=== PATIENT | female | born 1995 | race Caucasian/White ===

== ENCOUNTER 2017-01-13 01:09 | Emergency (ER) | payer MEDICAID ==
[~2017-01-13] VITALS: Ht 162.6 cm; Wt 59.1 kg
[~2017-01-13 01:09] MED LIST: ANTIVERT 25MG25 MG PO; FLINTSTONES W/I1 CTB PO; FLINTSTONES1 CTB PO; IBU600 MG PO; MACROBID 1100 MG/CAP PO; METHERGINE0.2 MG/TAB PO; MOTRIN 600600 MG/TAB PO; MOTRIN800 MG PO; NO HOME MEDICATIONS; NORCO 325 MG-7.1 TAB PO; OMNICEF 300MG300 MG PO; PERCOCET 325 MG1 TA2 PO; PHENERGAN 25 TA25 MG PO; PHENERGAN25 MG RC; PRENATAL 191 TAB PO; PROAIR HFA0.09 MG/AC IH; PROVENTIL0.09 MG/A1 IH; ZITHROMAX 250M250 MG PO
[2017-01-13 01:25] VITALS: TEMP 98.5
[2017-01-13 02:29] LABS: BASO % 0.4 % (0.0-2.0); EOS # 0.1 (0.0-0.7); EOS % 1.3 % (0-4.0); GRAN # 2.4 (1.4-6.5); GRAN % 43.1 % (42.2-75.2); HEMATOCRIT 38.9 % (37.0-47.0); HEMOGLOBIN 13.2 g/dl (12.5-16.0); LYMPH # 2.8 (1.2-3.4); LYMPH % 49.5 % (20.0-51.0); MEAN CELL VOLUME 89 fl (80.0-100.0); MEAN CORPUSCULAR HEMOGLOBIN 30 pg (27.0-31.0); MEAN CORPUSCULAR HGB CONC 34 g/dl (33.0-37.0); MEAN PLATELET VOLUME 9.7 fl (7.4-10.4); MONO # 0.3 (0.1-0.6); PLATELET COUNT 178 K/mm3 (130-400); RED BLOOD COUNT 4.37 M/mm3 (4.10-5.30); REDCELL DISTRIBUTION WIDTH-CV 11.6 % (11.5-14.5); WHITE BLOOD COUNT 5.6 K/mm3 (4.8-10.8)
[2017-01-13 02:40] LABS: ANION GAP 12 mmol/L (7-16); BLOOD UREA NITROGEN 9 mg/dL (7-17); CALCIUM 9.2 mg/dL (8.4-10.2); CARBON DIOXIDE 23 mmol/L (22-30); CHLORIDE 108 mmol/L (98-107); GLUCOSE 85 mg/dL (74-106); POTASSIUM 3.3 mmol/L (3.4-5.0); SODIUM 142 mmol/L (137-145)
[2017-01-13 02:52] LABS: TROPONIN-I < 0.012 ng/mL (0.000-0.034)
[2017-01-13 03:24] VITALS: BP 108/76; PULSE 90
== END 2017-01-13 03:24 | disposition home or self-care (01) ==
LOC: COL.ER 01:09
PROVIDERS: Physician Assistant
DX: F41.9 Anxiety disorder, unspecified (principal); R07.9 Chest pain, unspecified; J45.909 Unspecified asthma, uncomplicated; Z90.49 Acquired absence of other specified parts of digestive tract; Z87.891 Personal history of nicotine dependence; Z32.02 Encounter for pregnancy test, result negative

== ENCOUNTER 2017-05-28 20:23 | Emergency (ER) | payer SELFPAY ==
[~2017-05-28] VITALS: Ht 162.6 cm; Wt 54.5 kg
[2017-05-28 20:32] VITALS: TEMP 99.5
[2017-05-28 21:23] LABS: BASO % 0.2 % (0.0-2.0); GRAN # 3.4 (1.4-6.5); GRAN % 69.8 % (42.2-75.2); HEMATOCRIT 37.4 % (37.0-47.0); LYMPH # 1.1 (1.2-3.4); LYMPH % 22.7 % (20.0-51.0); MEAN CELL VOLUME 88 fl (80.0-100.0); MEAN CORPUSCULAR HEMOGLOBIN 31 pg (27.0-31.0); MEAN CORPUSCULAR HGB CONC 35 g/dl (33.0-37.0); MEAN PLATELET VOLUME 9.6 fl (7.4-10.4); MONO # 0.3 (0.1-0.6); MONO % 7.1 % (1.7-9.3); PLATELET COUNT 158 K/mm3 (130-400); RED BLOOD COUNT 4.23 M/mm3 (4.10-5.30); REDCELL DISTRIBUTION WIDTH-CV 11.9 % (11.5-14.5)
[2017-05-28 21:34] LABS: ACETAMINOPHEN < 10 ug/mL (10-30); ALANINE AMINOTRANSFERASE 35 U/L (9-52); ALBUMIN 4.2 gm/dL (3.5-5.0); ALCOHOL(ethanol),MEDICAL 24 mg/dL; ALKALINE PHOSPHATASE 109 U/L (50-136); ANION GAP 12 mmol/L (7-16); AST,SGOT 20 U/L (15-37); BILIRUBIN,TOTAL 0.7 mg/dL (0.0-1.0); BLOOD UREA NITROGEN 9 mg/dL (7-17); CALCIUM 9.1 mg/dL (8.4-10.2); CARBON DIOXIDE 21 mmol/L (22-30); CHLORIDE 108 mmol/L (98-107); CREATININE, serum 0.64 mg/dL (0.52-1.25); GLUCOSE 89 mg/dL (74-106); POTASSIUM 3.2 mmol/L (3.4-5.0); SALICYLATE < 1.0 mg/dL; SODIUM 141 mmol/L (137-145); TOTAL PROTEIN 7.2 gm/dL (6.4-8.2)
[2017-05-28 21:41] LABS: TRICYCLIC ANTIDEPRESS URINE NEGATIVE
[2017-05-29 09:19] VITALS: BP 103/62; PULSE 91
== END 2017-05-29 10:13 | disposition home or self-care (01) ==
LOC: COL.ER 20:23
PROVIDERS: Emergency Medicine
DX: T48.1X2A Poisoning by skeletal muscle relaxants [neuromuscular blocking agents], intentional self-harm, initial encounter (principal); F32.9 Major depressive disorder, single episode, unspecified; F41.9 Anxiety disorder, unspecified; F43.10 Post-traumatic stress disorder, unspecified; J45.909 Unspecified asthma, uncomplicated; Z98.890 Other specified postprocedural states
CPT/HCPCS: J7030

== ENCOUNTER 2018-04-30 04:44 | Outpatient (CLI) | payer MEDICAID ==
[~2018-04-30] VITALS: Ht 162.6 cm; Wt 63.6 kg
[2018-04-30 05:13] VITALS: BP 104/57; PULSE 100; TEMP 97.4
[2018-04-30 05:47] VITALS: BP 104/57; PULSE 100; TEMP 97.4
[2018-04-30 06:02] LABS: EOS % 0.1 % (0-4.0); GRAN # 7.3 (1.4-6.5); GRAN % 88.7 % (42.2-75.2); HEMATOCRIT 37.4 % (37.0-47.0); LYMPH # 0.5 (1.2-3.4); LYMPH % 6.3 % (20.0-51.0); MEAN CELL VOLUME 89 fl (80.0-100.0); MEAN CORPUSCULAR HEMOGLOBIN 31 pg (27.0-31.0); MEAN CORPUSCULAR HGB CONC 35 g/dl (33.0-37.0); MEAN PLATELET VOLUME 9.5 fl (7.4-10.4); MONO # 0.4 (0.1-0.6); MONO % 4.3 % (1.7-9.3); PLATELET COUNT 165 K/mm3 (130-400); RED BLOOD COUNT 4.21 M/mm3 (4.10-5.30); REDCELL DISTRIBUTION WIDTH-CV 12.3 % (11.5-14.5)
[2018-04-30 06:10] LABS: ALBUMIN 3.5 gm/dL (3.5-5.0); BILIRUBIN,TOTAL 0.9 mg/dL (0.0-1.0); CALCIUM 8.8 mg/dL (8.4-10.2); CREATININE, serum 0.52 mg/dL (0.52-1.25); POTASSIUM 3.6 mmol/L (3.4-5.0); TOTAL PROTEIN 6.8 gm/dL (6.4-8.2)
[2018-04-30 06:30] VITALS: TEMP 98.9
[2018-04-30 07:01] LABS: COLLECTION METHOD CLEAN CATCH
[2018-04-30 07:28] VITALS: BP 115/67; PULSE 88; TEMP 97.7
[2018-04-30 07:29] LABS: MUCOUS Present /lpf; PH 5 (5-8); SQUAMOUS EPITHELIAL 0-2 /hpf; URINE APPEARANCE Hazy; URINE BACTERIA Rare /hpf; URINE BILIRUBIN Negative (NEGATIVE); URINE BLOOD Negative (NEGATIVE); URINE COLOR Amber; URINE GLUCOSE Negative (NEGATIVE); URINE KETONE 2+ (NEGATIVE); URINE LEUKOCYTE ESTERASE 1+ (NEGATIVE); URINE NITRATE Negative (NEGATIVE); URINE PROTEIN(semi-quant) 2+ (NEGATIVE); URINE RBC None Seen /hpf; URINE WBC 0-2 /hpf
== END 2018-04-30 08:25 | disposition home or self-care (01) ==
LOC: LDRO 04:44
PROVIDERS: Obstetrics & Gynecology
DX: O26.893 Other specified pregnancy related conditions, third trimester (principal); R11.2 Nausea with vomiting, unspecified; R10.30 Lower abdominal pain, unspecified; Z3A.31 31 weeks gestation of pregnancy
CPT/HCPCS: J7120

== ENCOUNTER 2018-06-23 04:58 | Inpatient (IN) | payer MEDICAID ==
[~2018-06-23] VITALS: Ht 162.6 cm; Wt 69.1 kg
[2018-06-23] VITALS (15 sets, daily range): BP systolic 104–125; BP diastolic 45–77; PULSE 66–94; TEMP 97.6–98.3
[2018-06-23 05:58] LABS: BASO % 0.1 % (0.0-2.0); EOS % 0.4 % (0-4.0); GRAN # 6.4 (1.4-6.5); GRAN % 68.1 % (42.2-75.2); HEMATOCRIT 37.3 % (37.0-47.0); HEMOGLOBIN 12.7 g/dl (12.5-16.0); LYMPH # 2.4 (1.2-3.4); LYMPH % 24.8 % (20.0-51.0); MEAN CELL VOLUME 87 fl (80.0-100.0); MEAN CORPUSCULAR HEMOGLOBIN 30 pg (27.0-31.0); MEAN CORPUSCULAR HGB CONC 34 g/dl (33.0-37.0); MEAN PLATELET VOLUME 10.1 fl (7.4-10.4); MONO # 0.6 (0.1-0.6); MONO % 6.1 % (1.7-9.3); PLATELET COUNT 216 K/mm3 (130-400); RED BLOOD COUNT 4.29 M/mm3 (4.10-5.30); REDCELL DISTRIBUTION WIDTH-CV 12.6 % (11.5-14.5)
--- NOTE | 2018-06-23 06:45 | NUR ---
0645-Recieved report from GAYLE Arredondo who admitted patient for Repeat C/S. Reviewed Reactive strip and VSS. Consents previouslly signed by Maria Elena ARAUJO and patient. Updated on plan of care. IVF to R hand infusing. Site prepped. Patient previously trimmed mons pubis. Assessment complete. Awaiting Anesthesia provider to walk back to OR.
--- NOTE | 2018-06-23 08:25 | NUR ---
0825-Patient to PACU via bed. Drowsy but easily alert and oriented x 4. Patient denies pain. VSS, see recovery flow record. IV to right wrist with IVF infusing. Abdoimnal binder in place. Fundal massage firm. Lower abdominal dressing C/D/I, lochia WNL. Unable to feel sensation in LE, Easily moves all UE. Updated on plan of care and safety. Recieved report from ELLEN Weeks.
--- NOTE | 2018-06-23 08:55 | NUR ---
0855-All PACU vital signs WNL. VS not documented, system did not save information.
--- NOTE | 2018-06-23 08:55 | NUR ---
0855-Patient to room from Pacu VIA bed. A&O x4. Updated on plan of care and safety. VSS, see flow record. Carroll remains to DD, clear yellow urine. IVF to right wrist. SCDs BLE. Infant to left breast at this time. Will continue to monitor.
--- NOTE | 2018-06-23 18:30 | NUR ---
Eating meal, visiting with a friend. Pt states she is concerned that is sleepy and will not latch. RN explained this can be normal for infants age. Pt states her breasts "hurt" and she wants to pump and requested a breast pump. Pt states she plans to pump and feed infant. RN set pt up with pump and supplies as requested. Explained that if she is not planning on putting to breast she will will need to supplement with formula until she is able to pump enough breast milk for infants needs. Pt voiced understanding. RN reassured she will help pt and with needs throughout the night. Pt denies pain at this time. No futher needs.
--- NOTE | 2018-06-23 18:35 | NUR ---
REPORT RECEIVED FROM OFF GOING RN MEET Serna. CARE TAKEN OVER BY THIS RN.
[2018-06-24] MEDS ORDERED: IBU600 MG PO (08:28)
[2018-06-24] MEDS ORDERED: PERCOCET 325 MG1 TA2 PO (08:28)
[2018-06-24 08:30] VITALS: BP 108/74; PULSE 80; TEMP 98
--- NOTE | 2018-06-24 11:29 | NUR ---
Initial visit; Mom thanked for offering congratulations for the of her daughter. thanked Mom for choosing [facility].
[2018-06-24 17:00] VITALS: BP 122/64; PULSE 85; TEMP 97.6
[2018-06-24 20:00] VITALS: BP 109/72; PULSE 87; TEMP 98.5
[2018-06-25 07:45] VITALS: BP 116/55; PULSE 78; TEMP 98
--- NOTE | 2018-06-25 07:45 | NUR ---
Rests in bed, alert. Denies any needs at this time.
[2018-06-25] MEDS ORDERED: BREASTPUMP MC (08:53)
--- NOTE | 2018-06-25 11:30 | NUR ---
Discharge instructions given. Verbalizes understanding.
== END 2018-06-25 11:30 | disposition home or self-care (01) | DRG 788 ==
LOC: OB 04:58
PROVIDERS: ADMIT Obstetrics & Gynecology
PROC: 10D00Z1 Extraction of Products of Conception, Low, Open Approach (ICD-10-PCS; principal; 2018-06-23)
DX: O34.211 Maternal care for low transverse scar from previous cesarean delivery (principal); Z3A.39 39 weeks gestation of pregnancy; Z37.0 Single live birth; O99.334 Smoking (tobacco) complicating childbirth; O99.344 Other mental disorders complicating childbirth; F41.8 Other specified anxiety disorders; J45.909 Unspecified asthma, uncomplicated
CPT/HCPCS: J0690; J1885; J2250; J2370; J2405; J2590; J3010; J7120

== ENCOUNTER 2019-04-04 16:17 | Outpatient (CLI) | payer MEDICAID ==
[~2019-04-04] VITALS: Ht 162.6 cm; Wt 68.0 kg
[~2019-04-04 16:17] MED LIST changes: +BREASTPUMP MC
[2019-04-04 16:20] VITALS: BP 120/83; PULSE 101; TEMP 98.8
--- NOTE | 2019-04-04 16:20 | NUR ---
1620-G5L3 patient of Dr. Huynh to unit via wheelchair sobbing reporting abdoinal pain off and on since yesterday and upon awaking it became constant in front abdomen at umbilicus and down to pelvis directly in middle. Patient reports no vaginal bleeding or leaking of fluid. SVE /H. VSS, see flow record. 1650-Dr. Galeas updated. Orders to obtain CBC,CMP, UA,UDS, Lipase,Amylase, Give 500ml LR bolus and then infuse at 200ml/hr. Give 10mg pepcid, 4mg zofran. 1718-IV to left wrist, blood collected and sent to lab. Medications given, see emar. 1734-MD calls unit for update, reviewed patients strip and reported patient stating pain "not much improved."
[2019-04-04 17:00] VITALS: BP 120/83; PULSE 101; TEMP 98.8
--- NOTE | 2019-04-04 17:18 | NUR ---
1718-IV TO LEFT FOREARM BLOOD COLLECTED PER ORDERS AND SENT TO LAB. IVF BOLUS PER ORDERS. PEPCID AND ZOFRAN GIVEN PER ORDERS. UPDATED ON PLAN OF CARE. PATIENT SIGNIFICANT OTHER ASLEEP AT BEDSIDE. PATIENT FRIEND IN ROOM DISCUSSING PATIENTS CHILD AT HOME WITH "STOMACH ACHE LAST NIGHT" 1734-MD CALLS UNIT UPDATED ON PATIENT 1822-MD UPDATED ON PATIENTS LAB RESULTS 1825-SVE BY THIS RN /H, PATIENT UPDATED ON PLAN FOR DISCHARGE. DENIES QUESTIONS.
[2019-04-04 17:20] LABS: COLLECTION METHOD CLEAN CATCH
[2019-04-04 17:30] VITALS: BP 113/58; PULSE 88
[2019-04-04 17:30] LABS: HEMOGLOBIN 12.6 g/dl (12.5-16.0); MEAN CELL VOLUME 90 fl (80.0-100.0); MEAN CORPUSCULAR HEMOGLOBIN 31 pg (27.0-31.0); MEAN CORPUSCULAR HGB CONC 34 g/dl (33.0-37.0); MEAN PLATELET VOLUME 9.8 fl (7.4-10.4); PLATELET COUNT 165 K/mm3 (130-400); RED BLOOD COUNT 4.09 M/mm3 (4.10-5.30); REDCELL DISTRIBUTION WIDTH-CV 12.6 % (11.5-14.5)
[2019-04-04 17:31] LABS: MUCOUS Present /lpf; PH 6 (5-8); SQUAMOUS EPITHELIAL 0-2 /hpf; URINE APPEARANCE Clear; URINE BACTERIA None Seen /hpf; URINE BILIRUBIN Negative (NEGATIVE); URINE BLOOD Negative (NEGATIVE); URINE COLOR Yellow; URINE GLUCOSE Negative (NEGATIVE); URINE KETONE 1+ (NEGATIVE); URINE LEUKOCYTE ESTERASE Negative (NEGATIVE); URINE NITRATE Negative (NEGATIVE); URINE PROTEIN(semi-quant) Negative (NEGATIVE); URINE RBC 0-2 /hpf; URINE UROBILINOGEN >=4.0 mg/dL (NEGATIVE); URINE WBC 0-2 /hpf
[2019-04-04 17:37] LABS: HEMATOCRIT 36.8 % (37.0-47.0)
[2019-04-04 17:50] LABS: ALBUMIN 3.7 gm/dL (3.5-5.0); BILIRUBIN,TOTAL 0.7 mg/dL (0.0-1.0); CALCIUM 8.6 mg/dL (8.4-10.2); CREATININE, serum 0.45 (0.52-1.25); POTASSIUM 3.7 mmol/L (3.4-5.0); TOTAL PROTEIN 7.1 gm/dL (6.4-8.2)
[2019-04-04 17:58] LABS: TRICYCLIC ANTIDEPRESS URINE NEGATIVE
[2019-04-04 18:00] VITALS: BP 104/58; PULSE 85
--- NOTE | 2019-04-04 18:50 | NUR ---
DISCHARGE INSTRUCTIONS REVIEWED BY GAYLE CUMMINGS 1855-PATIENT AMBULATORY OFF UNIT WITH SIGNIFICANT OTHER.
== END 2019-04-04 18:55 | disposition home or self-care (01) ==
LOC: LDRO 16:17 → LDR 16:18 → LDRO 18:55
PROVIDERS: Obstetrics & Gynecology
DX: O62.9 Abnormality of forces of labor, unspecified (principal); Z3A.33 33 weeks gestation of pregnancy
CPT/HCPCS: OP; J2405; J7120

== ENCOUNTER 2019-05-11 02:29 | Inpatient (IN) | payer MEDICAID ==
[~2019-05-11] VITALS: Ht 160 cm; Wt 68.6 kg
[2019-05-11] VITALS (27 sets, daily range): BP systolic 93–119; BP diastolic 45–81; PULSE 69–100; TEMP 97.8–98.4
--- NOTE | 2019-05-11 02:30 | NUR ---
Pt to [facility] via [facility]. Report received from EMS. Pt able to move from strecher to bed independelty, pt crying at this time. Clean gown on. EFM and TOCO explained and applied. Pt states she has been having contractions for the last 2 weeks but also since falling. Pt states she was walking in [place] and tripped and fell on her abdomen. Pt was unable to catch herself during the fall. Pt reports sharp pain in her pelvis that radiates to her vagina and her back. Pt states pain is intermittent like contractions. Pt denies any other symptoms at this time. Denies LOF or vaginal bleeding. Pt states she has not felt fetus move since the fall. SVE 2-350/-2. 0301: called and updated on pts status. See physican notification. Pt updated on plan of care. Denies any questions. 0322: Tylenol #3 given per orders. Call light within reach. Family at bedside. Encouraged pt to get some rest.
--- NOTE | 2019-05-11 07:49 | NUR ---
Patient to bathroom to void. This RN at bedside and obtains UA. 0800: IV started in left hand, blood obtained and to lab, LR infusing. 0915: Patient prepped for surgery, superpubic area shaved, and cleansed with prep solution. Preop medications given.
[2019-05-11 08:14] LABS: BASO % 0.2 % (0.0-2.0); EOS # 0.1 (0.0-0.7); EOS % 0.7 % (0-4.0); GRAN % 62.8 % (42.2-75.2); HEMOGLOBIN 11.7 g/dl (12.5-16.0); LYMPH # 2.3 (1.2-3.4); LYMPH % 28.4 % (20.0-51.0); MEAN CELL VOLUME 90 fl (80.0-100.0); MEAN CORPUSCULAR HEMOGLOBIN 30 pg (27.0-31.0); MEAN CORPUSCULAR HGB CONC 33 g/dl (33.0-37.0); MEAN PLATELET VOLUME 9.8 fl (7.4-10.4); MONO # 0.6 (0.1-0.6); MONO % 7.2 % (1.7-9.3); PLATELET COUNT 171 K/mm3 (130-400); REDCELL DISTRIBUTION WIDTH-CV 13.1 % (11.5-14.5)
[2019-05-11 08:15] LABS: HEMATOCRIT 35.1 % (37.0-47.0)
[2019-05-11 08:29] LABS: TRICYCLIC ANTIDEPRESS URINE NEGATIVE
--- NOTE | 2019-05-11 09:10 | NUR ---
Dr Huynh here and at bedside visiting with pt. Plan is to do repeat c/section approximately 10am.
--- NOTE | 2019-05-11 09:48 | NUR ---
Pt prepped and ambulated to OR for repeat c/section.
--- NOTE | 2019-05-11 11:05 | NUR ---
To pacu via bed, alert. Denies any needs at this time.
--- NOTE | 2019-05-11 11:25 | NUR ---
Rests in bed, alert. Holds baby lovingly. Father of the baby at bedside.
--- NOTE | 2019-05-11 11:45 | NUR ---
To room 209 via bed with this nurse and another r.n. Holds baby lovingly. Father of the baby in the room waiting. Juice and crackers given. Denies pain at this time.
--- NOTE | 2019-05-11 12:15 | NUR ---
Rests in bed, alert. Eating food that family brought in. Denies any needs at this time.
--- NOTE | 2019-05-11 13:00 | NUR ---
Rests in bed, alert. Eating meal brought in by family. Request pain medication. Percocet 5/325 mg one given per request and as ordered.
--- NOTE | 2019-05-11 14:00 | NUR ---
Rests in bed, alert. Request pain medication. Percocet 5/325 mg one given per request and as ordered.
--- NOTE | 2019-05-11 16:00 | NUR ---
Ambulates to the bathroom. Tolerates well. Loreta-care explained and done. Carroll catheter out. Ambulates back to bed.
--- NOTE | 2019-05-11 18:30 | NUR ---
Rests in bed, alert. 1840 Ibuprofen 60 mg one given as ordered.
[2019-05-12 00:50] VITALS: BP 94/72; PULSE 73; TEMP 98.9
[2019-05-12 07:40] VITALS: BP 102/62; PULSE 67; TEMP 98
--- NOTE | 2019-05-12 08:29 | NUR ---
Upon entering room, found mother asleep in bed with baby lying along side. Woke mother and reminded her that she should not sleep in bed with baby. Moved baby into crib and took baby to nursery per mother's request.
[2019-05-12] MEDS ORDERED: PERCOCET 325 MG1 TA2 PO (08:40)
[2019-05-12] MEDS ORDERED: IBU600 MG PO (08:40)
--- NOTE | 2019-05-12 14:46 | NUR ---
quality worker met with patient to assess for needs. This is fourth child for patient. 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 Patient states she has family that provides support. Patient states she has WIC and has made her appointment for next Saturday. Patient states she has all need supplies for her baby. Worker and patient discussed her positive opiod test and states she does not take drugs and discussed this with Dr Hsu. Patient states she was incarcerated during and that case is cleared and that she does not have any further related issues. Worker collaborated with Dr Hsu and nurse regarding above information.
[2019-05-12 16:55] VITALS: BP 119/67; PULSE 85; TEMP 97.5
[2019-05-12 20:30] VITALS: BP 115/75; PULSE 82; TEMP 97.7
[2019-05-13 07:15] VITALS: BP 108/67; PULSE 81; TEMP 97.9
== END 2019-05-13 11:50 | disposition home or self-care (01) | DRG 788 ==
LOC: LDRO 02:29 → LDR 03:11 → LDRO 07:29 → OB 07:30 → LDR 07:30 → OB 11:35
PROVIDERS: ADMIT Obstetrics & Gynecology
PROC: 10D00Z1 Extraction of Products of Conception, Low, Open Approach (ICD-10-PCS; principal; 2019-05-11)
DX: O9A.213 Injury, poisoning and certain other consequences of external causes complicating pregnancy, third trimester (principal); O36.8330 Maternal care for abnormalities of the fetal heart rate or rhythm, third trimester, not applicable or unspecified; O34.211 Maternal care for low transverse scar from previous cesarean delivery; O99.02 Anemia complicating childbirth; D64.9 Anemia, unspecified; O99.343 Other mental disorders complicating pregnancy, third trimester; F32.9 Major depressive disorder, single episode, unspecified; O99.413 Diseases of the circulatory system complicating pregnancy, third trimester; Z37.0 Single live birth; Z3A.38 38 weeks gestation of pregnancy
CPT/HCPCS: J0690; J1885; J2370; J2405; J2590; J7120

== ENCOUNTER → 2021-10-29 | Emergency (ER) | payer MEDICAID | LOC: COL.ER 20:57 | DX: Z72.89 Other problems related to lifestyle (principal) ==